=== PATIENT | female | born 1955 | race African-American/Black ===

== ENCOUNTER 2019-12-27 15:57 | Inpatient (IN) | payer MEDICARE, OTHER ==
[~2019-12-27] VITALS: Ht 162.6 cm; Wt 59.9 kg
[2019-12-27 17:05] LABS: BASOPHILS % 0.5 % (0.0-2.0); EOSINOPHILS % 0.3 % (0.0-5.0); HEMATOCRIT. 37.9 % (36.0-48.0); LYMPHOCYTES % 20.4 % (20.0-50.0); MEAN CORPUSCULAR HEMOGLOBIN 24.8 pg (28.0-32.0); MEAN CORPUSCULAR VOLUME 78.4 fL (81.0-99.0); MEAN PLATELET VOLUME 7.5 fl (7.4-10.4); MONOCYTES % 7.8 % (2.0-8.0); PLATELET 257 x1000/uL (130-400); RED BLOOD CELL COUNT 4.84 mill/uL (4.2-5.4); RED CELL DISTRIBUTION WIDTH 15.7 % (11.6-14.6)
[2019-12-27 17:10] LABS: CHLORIDE 97 mEq/L (98-107)
[2019-12-27 17:12] LABS: PROTHROMBIN TIME 10.8 sec (9.6-11.0)
[2019-12-27 17:13] LABS: ETHANOL BLOOD < 10 mg/dL
[2019-12-27] MEDS ORDERED: LABETALOL 5MG/ML SYR 20 MG/4 ML SYRINGE IV ONE (17:15)
[2019-12-27 17:16] LABS: LDL CHOLESTEROL 146 mg/dL (5-100)
[2019-12-27 17:17] LABS: CREATINE KINASE 34 IU/L (26-192)
[2019-12-27] MEDS ORDERED: POTASSIUM CHLORIDE 20MEQ TABLET SR PO ONE (17:30)
[2019-12-27 17:59] LABS: CLARITY URINE CLOUDY (CLEAR); COLOR URINE DARK YELLOW (YELLOW); KETONES URINE 1+ (NEGATIVE); LEUKOCYTE ESTERASE URINE 3+ (NEGATIVE); NITRITE URINE NEGATIVE (NEGATIVE); OCCULT BLOOD URINE 2+ (NEGATIVE); PROTEIN URINE 2+ (NEGATIVE); SPECIFIC GRAVITY URINE 1.029 (1.005-1.030)
[2019-12-27 18:21] LABS: *AMPHETAMINES SCREEN URINE NEGATIVE (NEGATIVE); *BARBITURATES SCREEN URINE NEGATIVE (NEGATIVE); *BENZODIAZEPINES SCREEN URINE NEGATIVE (NEGATIVE); *COCAINE SCREEN URINE NEGATIVE (NEGATIVE); CANNABINOID URINE SCREEN NEGATIVE (NEGATIVE); METHADONE URINE SCREEN NEGATIVE (NEGATIVE); OPIATES URINE SCREEN NEGATIVE (NEGATIVE); PHENCYCLIDINE URINE SCREEN NEGATIVE (NEGATIVE)
[2019-12-27 18:42] LABS: CARBAMAZEPINE < 0.5 ug/mL (4-12); PHENOBARBITAL < 2.1 ug/mL (15.0-40.0); VALPROIC ACID < 3.0 ug/mL (50-100)
[2019-12-27] MEDS ORDERED: CEFTRIAXONE 1 G PREMIX 50 ML IV ONE (19:00)
[2019-12-27] MEDS: SODIUM CHLORIDE 0.9% 1,000 ML IV SCH (21:06)
[2019-12-27] MEDS ORDERED: ONDANSETRON HCL 4MG/2ML INJ IV PRN (21:15)
[2019-12-27] MEDS ORDERED: HYDRALAZINE 20MG/ML VIAL IV PRN (21:15)
[2019-12-27] MEDS ORDERED: LEVETIRACETAM 500MG PREMIX 100 ML IV SCH (21:15)
[2019-12-27] MEDS ORDERED: ACETAMINOPHEN 325MG TABLET PO PRN (21:15)
[2019-12-27] MEDS ORDERED: POTASSIUM CHLORIDE 20MEQ TABLET SR PO NR (21:15)
[2019-12-27] MEDS ORDERED: CEFTRIAXONE 1 G PREMIX 50 ML IV SCH (21:15)
[2019-12-27] MEDS: HEPARIN 5000 UNITS/ML VIAL SUBCUT SCH (21:30)
[2019-12-27] MEDS: CLONIDINE 0.1MG TABLET PO PRN (22:06)
[2019-12-27 22:40] VITALS: BP 146/77
[2019-12-27 23:30] VITALS: BP 149/87
[2019-12-28 04:00] VITALS: BP 164/101
[2019-12-28] MEDS: CLONIDINE 0.1MG TABLET PO PRN ×2 (05:23→06:10)
[2019-12-28 08:00] VITALS: BP 148/80
[2019-12-28] MEDS ORDERED: CEFTRIAXONE 1,000 MG in DEXTROSE 5% WATER 50 ML IV SCH (09:00)
[2019-12-28] MEDS: LEVETIRACETAM 500MG PREMIX 100 ML IV SCH ×2 (09:46→22:41)
[2019-12-28] MEDS: HEPARIN 5000 UNITS/ML VIAL SUBCUT SCH ×2 (09:47→22:42)
[2019-12-28] MEDS: SODIUM CHLORIDE 0.9% 1,000 ML IV SCH (09:48)
[2019-12-28] MEDS: CEFTRIAXONE 1,000 MG in DEXTROSE 5% WATER 50 ML IV SCH (10:10)
[2019-12-28 11:08] LABS: BASOPHILS % 0.2 % (0.0-2.0); EOSINOPHILS % 0.3 % (0.0-5.0); HEMATOCRIT. 35.6 % (36.0-48.0); HEMOGLOBIN. 11.5 g/dL (12.0-16.0); MEAN CORPUSCULAR HEMOGLOBIN 25.4 pg (28.0-32.0); MEAN CORPUSCULAR VOLUME 78.8 fL (81.0-99.0); MEAN PLATELET VOLUME 7.7 fl (7.4-10.4); MONOCYTES % 8.4 % (2.0-8.0); NEUTROPHILS % 66.1 % (40.0-76.0); PLATELET 234 x1000/uL (130-400); RED BLOOD CELL COUNT 4.52 mill/uL (4.2-5.4); RED CELL DISTRIBUTION WIDTH 15.8 % (11.6-14.6)
[2019-12-28 12:00] VITALS: BP 141/88
[2019-12-28 12:42] LABS: CHLORIDE 103 mEq/L (98-107)
[2019-12-28] MEDS ORDERED: CLOP75TA4 PO (14:13)
[2019-12-28] MEDS ORDERED: estratest PO (14:13)
[2019-12-28] MEDS ORDERED: THYR60TA12 PO (14:13)
[2019-12-28] MEDS ORDERED: AMLO5TAB4 PO (14:13)
[2019-12-28] MEDS ORDERED: LOSA100T3 PO (14:13)
[2019-12-28] MEDS ORDERED: HYDR25TA PO (14:13)
[2019-12-28] MEDS ORDERED: BUPR100T13 PO (14:13)
[2019-12-28] MEDS ORDERED: NAPR-677 PO (14:13)
[2019-12-28] MEDS ORDERED: PRAV40TA58 MT (15:01)
[2019-12-28] MEDS ORDERED: ESCI10TA PO (15:01)
[2019-12-28 16:00] VITALS: BP 159/96
[2019-12-28] MEDS ORDERED: CLOPIDOGREL 75MG TABLET PO SCH (16:00)
[2019-12-28] MEDS ORDERED: DEXTROSE 50% WATER 50ML SYRINGE IV PRN (16:00)
[2019-12-28] MEDS ORDERED: THYROID 60MG TABLET PO SCH (16:00)
[2019-12-28] MEDS ORDERED: AMLODIPINE 5MG TABLET PO SCH (16:30)
[2019-12-28] MEDS: DEXT 5%/0.45% NACL 1000ML 1,000 ML IV SCH (16:43)
[2019-12-28] MEDS: BLOOD SUGAR DIAGNOSTIC STRIP TEST SCH ×2 (16:43→21:00)
[2019-12-28] MEDS: LOSARTAN POTASSIUM 100 MG TABLET PO SCH (16:46)
[2019-12-28 16:48] LABS: T4 FREE 0.81 ng/dL (0.76-1.46)
[2019-12-28] MEDS ORDERED: NON FORMULARY PATIENT HOME MED XX SCH (18:45)
[2019-12-28] MEDS: CITALOPRAM HYDROBROMIDE 10MG TABLET PO SCH (18:55)
[2019-12-28 20:00] VITALS: BP 136/91
[2019-12-28] MEDS ORDERED: AMLODIPINE 2.5MG TABLET PO SCH (21:00)
[2019-12-28] MEDS: ATORVASTATIN CALCIUM 20MG TABLET PO SCH (22:41)
[2019-12-29] VITALS: BP 163/96
[2019-12-29 04:00] VITALS: BP 163/98
[2019-12-29] MEDS: DEXT 5%/0.45% NACL 1000ML 1,000 ML IV SCH ×2 (05:20→18:37)
[2019-12-29 06:47] LABS: CHLORIDE 104 mEq/L (98-107)
[2019-12-29] MEDS: LEVOTHYROXINE SODIUM 100MCG TABLET PO SCH (06:59)
[2019-12-29] MEDS: BLOOD SUGAR DIAGNOSTIC STRIP TEST SCH ×4 (06:59→21:00)
[2019-12-29 07:03] LABS: BASOPHILS % 0.3 % (0.0-2.0); EOSINOPHILS % 0.2 % (0.0-5.0); HEMATOCRIT. 34.2 % (36.0-48.0); HEMOGLOBIN. 10.9 g/dL (12.0-16.0); LYMPHOCYTES % 23.6 % (20.0-50.0); MEAN CORPUSCULAR VOLUME 78.3 fL (81.0-99.0); MEAN PLATELET VOLUME 7.8 fl (7.4-10.4); MONOCYTES % 8.6 % (2.0-8.0); NEUTROPHILS % 67.3 % (40.0-76.0); PLATELET 234 x1000/uL (130-400); RED BLOOD CELL COUNT 4.38 mill/uL (4.2-5.4); RED CELL DISTRIBUTION WIDTH 15.7 % (11.6-14.6)
[2019-12-29 08:00] VITALS: BP 161/95
[2019-12-29] MEDS: LEVETIRACETAM 500MG PREMIX 100 ML IV SCH ×2 (09:18→22:55)
[2019-12-29] MEDS: CEFTRIAXONE 1,000 MG in DEXTROSE 5% WATER 50 ML IV SCH (09:18)
[2019-12-29] MEDS: THIAMINE HCL 100MG TABLET PO SCH (09:19)
[2019-12-29] MEDS: POTASSIUM CHLORIDE 20MEQ TABLET SR PO SCH (09:19)
[2019-12-29] MEDS: CITALOPRAM HYDROBROMIDE 10MG TABLET PO SCH (09:19)
[2019-12-29] MEDS: FOLIC ACID 1MG TABLET PO SCH (09:19)
[2019-12-29] MEDS: HEPARIN 5000 UNITS/ML VIAL SUBCUT SCH ×2 (09:20→22:27)
[2019-12-29] MEDS: AMLODIPINE 5MG TABLET PO SCH ×2 (09:20→22:26)
[2019-12-29] MEDS: MULTIVITAMINS,THER W-MINERALS TABLET PO SCH (09:20)
[2019-12-29] MEDS: LOSARTAN POTASSIUM 100 MG TABLET PO SCH (09:20)
[2019-12-29 12:00] VITALS: BP 159/99
[2019-12-29] MEDS: CLONIDINE 0.2MG TABLET PO SCH ×2 (14:00→22:00)
[2019-12-29 16:00] VITALS: BP 148/98
[2019-12-29 20:00] VITALS: BP 94/54
[2019-12-29] MEDS: ATORVASTATIN CALCIUM 20MG TABLET PO SCH (22:26)
[2019-12-30] VITALS (10 sets, daily range): BP systolic 78–156; BP diastolic 42–82
[2019-12-30] MEDS: CLONIDINE 0.2MG TABLET PO SCH ×2 (06:00→13:59)
[2019-12-30] MEDS: BLOOD SUGAR DIAGNOSTIC STRIP TEST SCH ×4 (06:13→21:24)
[2019-12-30 06:35] LABS: CHLORIDE 105 mEq/L (98-107)
[2019-12-30] MEDS: LEVOTHYROXINE SODIUM 100MCG TABLET PO SCH (06:40)
[2019-12-30 06:53] LABS: BASOPHILS % 0.9 % (0.0-2.0); EOSINOPHILS % 0.4 % (0.0-5.0); HEMATOCRIT. 33.8 % (36.0-48.0); LYMPHOCYTES % 27.1 % (20.0-50.0); MEAN CORPUSCULAR HEMOGLOBIN 25.6 pg (28.0-32.0); MEAN CORPUSCULAR VOLUME 78.3 fL (81.0-99.0); MEAN PLATELET VOLUME 7.8 fl (7.4-10.4); NEUTROPHILS % 62.6 % (40.0-76.0); PLATELET 221 x1000/uL (130-400); RED BLOOD CELL COUNT 4.32 mill/uL (4.2-5.4); RED CELL DISTRIBUTION WIDTH 15.5 % (11.6-14.6)
[2019-12-30 07:05] LABS: VITAMIN B12 SERUM 1800 pg/mL (211-911)
[2019-12-30] MEDS: LEVETIRACETAM 500MG PREMIX 100 ML IV SCH (10:17)
[2019-12-30] MEDS: DEXT 5%/0.45% NACL 1000ML 1,000 ML IV SCH ×2 (10:17→20:58)
[2019-12-30] MEDS: LOSARTAN POTASSIUM 100 MG TABLET PO SCH (10:18)
[2019-12-30] MEDS: CEFTRIAXONE 1,000 MG in DEXTROSE 5% WATER 50 ML IV SCH (10:18)
[2019-12-30] MEDS: MULTIVITAMINS,THER W-MINERALS TABLET PO SCH (10:18)
[2019-12-30] MEDS: FOLIC ACID 1MG TABLET PO SCH (10:18)
[2019-12-30] MEDS: AMLODIPINE 5MG TABLET PO SCH (10:20)
[2019-12-30] MEDS: CITALOPRAM HYDROBROMIDE 10MG TABLET PO SCH (10:21)
[2019-12-30] MEDS: HEPARIN 5000 UNITS/ML VIAL SUBCUT SCH ×2 (10:23→20:58)
[2019-12-30] MEDS: THIAMINE HCL 100MG TABLET PO SCH (10:26)
[2019-12-30] MEDS: POTASSIUM CHLORIDE 20MEQ TABLET SR PO SCH (10:26)
[2019-12-30 14:34] LABS: TOTAL IRON BINDING CAPACITY 200 ug/dL (250-450)
[2019-12-30 14:53] LABS: FOLIC ACID (FOLATE) SERUM 5.8 ng/mL (>5.38)
[2019-12-30] MEDS ORDERED: SODIUM CHLORIDE 0.9% 500 ML IV ONE (18:15)
[2019-12-30] MEDS: ATORVASTATIN CALCIUM 20MG TABLET PO SCH ×2 (20:58→21:00)
[2019-12-31] VITALS: BP 138/68
[2019-12-31 04:00] VITALS: BP 127/66
[2019-12-31] MEDS: BLOOD SUGAR DIAGNOSTIC STRIP TEST SCH ×4 (05:49→21:00)
[2019-12-31] MEDS: LEVOTHYROXINE SODIUM 100MCG TABLET PO SCH (05:54)
[2019-12-31 06:53] LABS: EOSINOPHILS % 0.9 % (0.0-5.0); HEMATOCRIT. 30.5 % (36.0-48.0); HEMOGLOBIN. 9.8 g/dL (12.0-16.0); LYMPHOCYTES % 36.3 % (20.0-50.0); MEAN CORPUSCULAR HEMOGLOBIN 25.1 pg (28.0-32.0); MEAN CORPUSCULAR VOLUME 78.2 fL (81.0-99.0); MONOCYTES % 12.2 % (2.0-8.0); NEUTROPHILS % 49.6 % (40.0-76.0); PLATELET 187 x1000/uL (130-400); RED CELL DISTRIBUTION WIDTH 15.6 % (11.6-14.6)
[2019-12-31 07:22] LABS: CHLORIDE 108 mEq/L (98-107)
[2019-12-31 08:00] VITALS: BP 129/66
[2019-12-31] MEDS ORDERED: LEVETIRACETAM 500MG/5ML CUP PO SCH (09:00)
[2019-12-31] MEDS: MULTIVITAMINS,THER W-MINERALS TABLET PO SCH (09:29)
[2019-12-31] MEDS: THIAMINE HCL 100MG TABLET PO SCH (09:29)
[2019-12-31] MEDS: POTASSIUM CHLORIDE 20MEQ TABLET SR PO SCH (09:29)
[2019-12-31] MEDS: CITALOPRAM HYDROBROMIDE 10MG TABLET PO SCH (09:29)
[2019-12-31] MEDS: MAGNESIUM GLUCONATE 500MG TABLET PO SCH (09:29)
[2019-12-31] MEDS: FOLIC ACID 1MG TABLET PO SCH (09:29)
[2019-12-31] MEDS: HEPARIN 5000 UNITS/ML VIAL SUBCUT SCH ×2 (09:30→21:18)
[2019-12-31] MEDS: LEVETIRACETAM 500MG/5ML CUP PO SCH ×2 (09:30→17:43)
[2019-12-31] MEDS ORDERED: MAGNESIUM 2 G PREMIX 50 ML IV NR (10:00)
[2019-12-31] MEDS: DEXT 5%/0.45% NACL 1000ML 1,000 ML IV SCH (10:45)
[2019-12-31 12:00] VITALS: BP 142/71
[2019-12-31 16:00] VITALS: BP 107/42
[2019-12-31 20:00] VITALS: BP 121/61
[2019-12-31] MEDS: ATORVASTATIN CALCIUM 20MG TABLET PO SCH (21:18)
[2020-01-01] VITALS: BP 149/75
[2020-01-01] MEDS: DEXT 5%/0.45% NACL 1000ML 1,000 ML IV SCH ×2 (01:25→14:51)
[2020-01-01 04:00] VITALS: BP 180/87
[2020-01-01] MEDS: CLONIDINE 0.1MG TABLET PO PRN (04:35)
[2020-01-01] MEDS: LEVOTHYROXINE SODIUM 100MCG TABLET PO SCH (06:03)
[2020-01-01 06:28] LABS: HEMATOCRIT. 32.8 % (36.0-48.0); HEMOGLOBIN. 10.7 g/dL (12.0-16.0); MEAN CORPUSCULAR HEMOGLOBIN 25.2 pg (28.0-32.0); MEAN CORPUSCULAR VOLUME 77.5 fL (81.0-99.0); MEAN PLATELET VOLUME 7.6 fl (7.4-10.4); PLATELET 211 x1000/uL (130-400); RED BLOOD CELL COUNT 4.24 mill/uL (4.2-5.4); RED CELL DISTRIBUTION WIDTH 15.7 % (11.6-14.6)
[2020-01-01 06:38] LABS: CHLORIDE 107 mEq/L (98-107)
[2020-01-01] MEDS: BLOOD SUGAR DIAGNOSTIC STRIP TEST SCH ×2 (06:45→12:24)
[2020-01-01 08:00] VITALS: BP 102/56
[2020-01-01] MEDS: LEVETIRACETAM 500MG/5ML CUP PO SCH ×2 (09:06→17:00)
[2020-01-01] MEDS: MAGNESIUM GLUCONATE 500MG TABLET PO SCH (09:07)
[2020-01-01] MEDS: MULTIVITAMINS,THER W-MINERALS TABLET PO SCH (09:07)
[2020-01-01] MEDS: POTASSIUM CHLORIDE 20MEQ TABLET SR PO SCH (09:07)
[2020-01-01] MEDS: FOLIC ACID 1MG TABLET PO SCH (09:07)
[2020-01-01] MEDS: HEPARIN 5000 UNITS/ML VIAL SUBCUT SCH (09:07)
[2020-01-01] MEDS: CITALOPRAM HYDROBROMIDE 10MG TABLET PO SCH (09:08)
[2020-01-01] MEDS: THIAMINE HCL 100MG TABLET PO SCH (09:08)
[2020-01-01 12:00] VITALS: BP 115/61
[2020-01-01 13:50] LABS: PLATELET ESTIMATE NORMAL
[2020-01-01] MEDS ORDERED: POTASSIUM CHLORIDE 20MEQ/PACKET PO NR (14:00)
[2020-01-01] MEDS ORDERED: MAGNESIUM 4 G PREMIX 100 ML IV NR (15:00)
[2020-01-01 16:19] VITALS: BP 131/67
== END 2020-01-01 18:58 | DRG 896 ==
LOC: ER 15:57 → EDBEDREQTM 17:15 → EDBEDREQ 17:15 → 5WST 18:08 → EDBEDREQ 18:11 → EDBEDREQTM 18:11 → ENRESERV 21:34
PROVIDERS: ADMIT Internal Medicine; ATTEND Internal Medicine
PROC: 4A00X4Z Measurement of Central Nervous Electrical Activity, External Approach (ICD-10-PCS; principal; 2019-12-29)
DX: F10.239 Alcohol dependence with withdrawal, unspecified (principal); G93.41 Metabolic encephalopathy; N39.0 Urinary tract infection, site not specified; G40.909 Epilepsy, unspecified, not intractable, without status epilepticus; R55 Syncope and collapse; E87.6 Hypokalemia; E78.5 Hyperlipidemia, unspecified; K76.0 Fatty (change of) liver, not elsewhere classified; I10 Essential (primary) hypertension; R00.0 Tachycardia, unspecified; F41.9 Anxiety disorder, unspecified; F32.9 Major depressive disorder, single episode, unspecified; E03.9 Hypothyroidism, unspecified; R29.701 NIHSS score 1; D64.9 Anemia, unspecified; R74.0 Nonspecific elevation of levels of transaminase and lactic acid dehydrogenase [LDH]; E83.42 Hypomagnesemia; F10.10 Alcohol abuse, uncomplicated; M25.552 Pain in left hip; M25.551 Pain in right hip; I95.9 Hypotension, unspecified; G47.10 Hypersomnia, unspecified; Z03.818 Encounter for observation for suspected exposure to other biological agents ruled out
CPT/HCPCS: 36415; 70551; 71045; 73502; 76705; 80053; 80156; 80165; 80184; 80185; 80305; 80320; 81003; 82140; 82550; 82607; 82728; 82746; 82962; 83036; 83540; 83550; 83721; 83735; 83880; 84439; 84443; 84484; 85025; 85044; 87635; 92610; 93005; 93306; 93970; 96365; 97110; 97112; 97162; 97164; 97166; 97168; 97530; 97535; 99285; J0360; J0696; J1644; J1953; J3475; J3490; J7060; G0480